=== PATIENT | female | born 1975 | race Caucasian/White ===

== ENCOUNTER 2017-06-03 13:40 | Emergency (ER) | payer MEDICAID ==
[~2017-06-03] VITALS: Ht 165.1 cm; Wt 132.9 kg
[~2017-06-03 13:40] MED LIST: NORG7TAB2 PO
[2017-06-03 14:23] VITALS: BP_SYST 139
[2017-06-03] MEDS ORDERED: DIPH-TET-PERTUS Vaccine 0.5 ML VIAL (ADACEL) I.M. ONE (15:00)
[2017-06-03 15:40] VITALS: BP_SYST 128
== END 2017-06-03 15:40 | disposition home or self-care (01) ==
LOC: SED 13:40
DX: S91.331A Puncture wound without foreign body, right foot, initial encounter (principal); J45.909 Unspecified asthma, uncomplicated; W45.0XXA Nail entering through skin, initial encounter; Y93.89 Activity, other specified; Y92.098 Other place in other non-institutional residence as the place of occurrence of the external cause; Y99.8 Other external cause status
CPT/HCPCS: 90715; 99284